=== PATIENT | male | born 1950 | race Two or more races ===

== ENCOUNTER → 2024-12-24 | Outpatient (CLI) | payer MEDICARE, MEDICAID ==
[~2024-12-24] MED LIST: CEPH500T PO; FAMO40TA70 PO; SULF1TAB48 PO; TOPUD PO
== END | disposition home or self-care (01) ==
LOC: CT 09:31
PROVIDERS: ATTEND Internal Medicine Cardiovascular Disease
DX: N28.1 Cyst of kidney, acquired (principal); I71.21 Aneurysm of the ascending aorta, without rupture; I71.23 Aneurysm of the descending thoracic aorta, without rupture; K76.0 Fatty (change of) liver, not elsewhere classified; K57.90 Diverticulosis of intestine, part unspecified, without perforation or abscess without bleeding; M48.56XA Collapsed vertebra, not elsewhere classified, lumbar region, initial encounter for fracture
CPT/HCPCS: 71260; 74160

== ENCOUNTER 2025-01-25 18:18 | Emergency (ER) | payer MEDICARE, MEDICAID ==
[~2025-01-25] VITALS: Ht 172.7 cm; Wt 80.0 kg
[2025-01-25 18:32] VITALS: O2SAT 98
[2025-01-25 18:45] VITALS: BP 125/90; PULSE 78; RESP 16; TEMP 36.7; O2SAT 96
[2025-01-25 19:57] LABS: BASOPHILS % 0.8 % (0.0-2.0); EOSINOPHILS % 3.1 % (0.0-5.0); HEMATOCRIT. 42.2 % (42.0-52.0); HEMOGLOBIN. 14.1 g/dL (14.0-18.0); LYMPHOCYTES % 20.3 % (20.0-50.0); MEAN PLATELET VOLUME 7.7 fl (7.4-10.4); MONOCYTES % 9.1 % (2.0-8.0); NEUTROPHILS % 66.7 % (40.0-76.0); PLATELET 194 x1000/uL (130-400); RED BLOOD CELL COUNT 4.53 mill/uL (4.7-6.1); RED CELL DISTRIBUTION WIDTH 14.5 % (11.6-14.6)
[2025-01-25 20:12] LABS: CREATININE 1.3 mg/dL (0.6-1.3); UREA NITROGEN BLOOD 23.0 mg/dL (9-23)
[2025-01-26] MEDS ORDERED: SULF1TAB48 PO (07:10)
[2025-01-26] MEDS ORDERED: CEPH500T PO (07:10)
== END 2025-01-25 21:55 | disposition left against medical advice (07) ==
LOC: ER 18:18
DX: L02.31 Cutaneous abscess of buttock (principal); Z53.21 Procedure and treatment not carried out due to patient leaving prior to being seen by health care provider
CPT/HCPCS: 36415; 80048; 85025

== ENCOUNTER 2025-01-26 06:36 | Emergency (ER) | payer MEDICARE, MEDICAID ==
[~2025-01-26] VITALS: Ht 172.7 cm; Wt 81.2 kg
[2025-01-26 06:39] VITALS: O2SAT 97
[2025-01-26] MEDS ORDERED: CEPH500T PO (07:10)
[2025-01-26] MEDS ORDERED: SULF1TAB48 PO (07:10)
[2025-01-26] MEDS: LIDOCAINE HCL 1% 20ML VIAL INFIL ONE (07:15)
[2025-01-26 07:49] VITALS: BP 138/93; PULSE 76; RESP 18; TEMP 36.4; O2SAT 99
== END 2025-01-26 07:55 | disposition home or self-care (01) ==
LOC: ER 06:36
DX: L03.317 Cellulitis of buttock (principal); I10 Essential (primary) hypertension; Z98.890 Other specified postprocedural states
CPT/HCPCS: 99284; 76604; J2003

== ENCOUNTER 2025-02-03 06:42 | Emergency (ER) | payer MEDICARE, MEDICAID ==
[~2025-02-03] VITALS: Ht 172.7 cm; Wt 79.0 kg
[~2025-02-03 06:42] MED LIST changes: -FAMO40TA70 PO; -TOPUD PO
[2025-02-03 06:51] VITALS: O2SAT 96
[2025-02-03 07:23] LABS: BASOPHILS % 1.0 % (0.0-2.0); EOSINOPHILS % 4.1 % (0.0-5.0); HEMATOCRIT. 40.0 % (42.0-52.0); HEMOGLOBIN. 13.8 g/dL (14.0-18.0); LYMPHOCYTES % 9.7 % (20.0-50.0); MEAN PLATELET VOLUME 7.7 fl (7.4-10.4); MONOCYTES % 14.7 % (2.0-8.0); NEUTROPHILS % 70.5 % (40.0-76.0); PLATELET 196 x1000/uL (130-400); RED BLOOD CELL COUNT 4.31 mill/uL (4.7-6.1); RED CELL DISTRIBUTION WIDTH 14.5 % (11.6-14.6)
[2025-02-03] MEDS ORDERED: VISCOUS LIDOCAINE 2% 15 ML UDC MM ONE (07:30)
[2025-02-03] MEDS ORDERED: FAMOTIDINE 20MG/2ML VIAL IV ONE (07:30)
[2025-02-03] MEDS ORDERED: BELLADONNA ALK/PHENOBARB 16.2MG/5ML ORAL SYR PO ONE (07:30)
[2025-02-03 07:33] LABS: UREA NITROGEN BLOOD 32 mg/dL (9-23)
[2025-02-03 07:35] LABS: ASPARTATE AMINOTRANSFERASE 19 IU/L (<34); BILIRUBIN DIRECT 0.2 mg/dL (<=3.0); BILIRUBIN TOTAL 0.6 mg/dL (0.1-1.0)
[2025-02-03 07:36] LABS: PROTEIN TOTAL 7.6 g/dL (6.0-8.3)
[2025-02-03 07:42] LABS: CREATININE 1.8 mg/dL (0.6-1.3)
[2025-02-03] MEDS: MAGNESIUM/ALUMINUM HYDROXIDE/SIMETHICONE 30ML UDC PO ONE (08:02)
[2025-02-03] MEDS ORDERED: TOPUD PO (08:08)
[2025-02-03] MEDS ORDERED: FAMO40TA70 PO (08:08)
[2025-02-03] MEDS ORDERED: VISCOUS LIDOCAINE 2% 15 ML UDC MM NR (08:15)
[2025-02-03] MEDS ORDERED: DICYCLOMINE HCL 10MG CAPSULE PO NR (08:15)
[2025-02-03] MEDS ORDERED: FAMOTIDINE 20MG/2ML VIAL IV NR (08:15)
[2025-02-03 08:25] VITALS: BP 128/82; PULSE 74; RESP 15; TEMP 36.7; O2SAT 99
== END 2025-02-03 08:25 | disposition home or self-care (01) ==
LOC: ER 06:42
DX: R10.84 Generalized abdominal pain (principal); K21.9 Gastro-esophageal reflux disease without esophagitis; I10 Essential (primary) hypertension; J45.909 Unspecified asthma, uncomplicated; Z79.899 Other long term (current) drug therapy; Z98.890 Other specified postprocedural states
CPT/HCPCS: 36415; 80048; 80076; 85025; 99283